=== PATIENT | female | born 1970 | race Caucasian/White ===

== ENCOUNTER 2020-04-05 00:15 | Emergency (ER) | payer OTHER, SELFPAY ==
[2020-04-05] VITALS (9 sets, daily range): BP systolic 95–190; BP diastolic 51–104; PULSE 60–114; RESP 12–22; TEMP 36.8; O2SAT 92–99; BMI 25.0
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
[2020-04-05] MEDS: Ibuprofen 600 MG Tablet PO (00:45)
[2020-04-05] MEDS: fentaNYL 100 MCG/2 ML Ampul 50 MCG IV (01:27)
[2020-04-05] MEDS: Propofol 200 MG/20 ML Vial IV BOLUS (01:27)
--- NOTE | 2020-04-05 01:53 | RAD_ITS ---
STUDY: X-RAY - RIGHT ANKLE REASON FOR EXAM: Female, 49 years old. POST REDUCTION TECHNIQUE: 2 view(s) of the ankle. COMPARISON: April 05, 2020 right ankle x-ray. FINDINGS: There is a fracture of the medial malleolus with lateral displacement of the distal fragment. There is a fracture of the distal fibula. There is a widened appearance of the tibiotalar joint. There is a fracture of the posterior malleolus. Normal visualized talus and calcaneus. The visualized subtalar, talonavicular, calcaneocuboid and tarsal articulations are normal. There is soft tissue edema. RAD/Ankle 2 Views IMPRESSION: Trimalleolar fracture now in a splint. Persistent widening of the tibiotalar joint. Electronically Signed: Kristen De León MD at 2:20 EDT Tel , Service support ,
== END 2020-04-05 02:26 | disposition home or self-care (01) ==
PROVIDERS: Emergency Provider Emergency Medicine; PCP Internal Medicine
DX: S82.851A Displaced trimalleolar fracture of right lower leg, initial encounter for closed fracture (principal); V86.69XA Passenger of other special all-terrain or other off-road motor vehicle injured in nontraffic accident, initial encounter; Y93.9 Activity, unspecified; Y92.9 Unspecified place or not applicable; Y99.9 Unspecified external cause status
CPT/HCPCS: 27818; 73600; 73610; 96361; 96374; 96375; 99285; J7030

== ENCOUNTER → 2020-04-07 09:49 | Outpatient (CLI) | payer OTHER, SELFPAY ==
[2020-04-05 00:16] VITALS: BMI 25.0
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
--- NOTE | 2020-04-07 10:02 | RAD_ITS ---
STUDY: X-RAY CHEST REASON FOR EXAM: Female, 49 years old. Pre op for ankle surgery -- no chest complaints TECHNIQUE: PA and lateral views of the chest. COMPARISON: None. FINDINGS: The lungs are clear and expanded. There is no demonstrated pleural abnormality. Normal size heart. Normal mediastinum and fiorella. Normal visualized pulmonary arteries. Normal visualized aortic arch and descending thoracic aorta. Normal visualized thoracic spine. Normal visualized ribs, clavicles, and shoulders. There is no demonstrated abnormality of the visualized soft tissue structures of the upper abdomen. RAD/Chest PA and Lateral IMPRESSION: Normal x-ray examination of the chest. Electronically Signed: Grge Bahena, at 15:29 EDT , Service support ,
== END ==
PROVIDERS: PCP Internal Medicine; Referring Provider Podiatrist Foot & Ankle Surgery; Visit Provider Podiatrist Foot & Ankle Surgery
DX: S82.851A Displaced trimalleolar fracture of right lower leg, initial encounter for closed fracture (principal); X58.XXXA Exposure to other specified factors, initial encounter; Y93.9 Activity, unspecified; Y92.9 Unspecified place or not applicable; Y99.9 Unspecified external cause status; Z01.818 Encounter for other preprocedural examination
CPT/HCPCS: 71046; 73700

== ENCOUNTER 2020-04-10 08:28 | Day surgery (SDC) | payer OTHER, SELFPAY ==
[2020-04-05 00:16] VITALS: BMI 25.0
--- NOTE | 2020-04-07 10:25 | EKG12_ITS ---
Test Reason : PRE-OP Blood Pressure : / mmHG Vent. Rate : 083 BPM Atrial Rate : 083 BPM P-R Int : 132 ms QRS Dur : 078 ms QT Int : 360 ms P-R-T Axes : 077 047 032 degrees QTc Int : 423 ms Normal sinus rhythm Normal ECG Confirmed by SHARLA RAYA, RUDDY ([id number]), copy editor MILES HERNANDEZ ([id number]) on 04/09/2020 10:20:55 AM Referred By: Lucas Hernandez Confirmed By:RUDDY MAGDALENO MD
[2020-04-07 10:28] LABS: Absolute Lymphocyte Count 2.26 X10^3/uL (0.83-4.51); Absolute Neutrophil Count 6.4 X10^3/uL (2.0-7.7); Basophil# 0.06 X10^3/uL; Basophil% 0.6 % (0-1); Eosinophil# 0.13 X10^3/uL; Eosinophils% 1.3 % (0-5); Hematocrit 36.5 % (37-47); Hemoglobin 12.3 g/dL (12.0-15.0); Lymphocyte # 2.26 X10^3/ul (4.0); Lymphocyte % 23.4 % (19-41); Mean Corp Hgb Conc 33.7 g/dL (32-36); Mean Corpuscular Hgb 32.2 pg (27.0-32.0); Mean Corpuscular Volume 95.5 fL (81-99); Mean Platelet Vol. 11.1 fl (6.2-12.0); Monocyte# 0.69 X10^3/uL; Monocyte% 7.1 % (0-10); NRBC Flagged by Analyzer 0 % (0-5); Neutrophil # 6.43 X10^3/uL (2.7-7.7); Neutrophil % 66.7 % (47-70); Platelet Count 175 K/mm3 (150-450); RBC Distribution Width CV 12.3 % (11.6-14.6); RBC Distribution Width SD 42.9 fl (35.1-43.9); Red Blood Count 3.82 M/mm3 (4.2-5.4); White Blood Count 9.7 K/mm3 (4.4-11.0)
[2020-04-07 10:40] LABS: International Normalized Ratio 0.8; Prothrombin Time (Protime)PT. 11.1 SECONDS (11.7-14.9)
[2020-04-07 10:41] LABS: Partial Thromboplast Time 29.9 Seconds (24.1-36.2)
[2020-04-07 10:57] LABS: Anion Gap 5 (5-15); BUN 13 mg/dL (7-18); BUN/Creat Ratio 18.5 RATIO (10-20); Calcium,Total 9.2 mg/dL (8.5-10.1); Chloride 105 mmol/L (98-107); EST Glomerular Filtration Rate 94 mL/min (>60); Est Glom Filt Rate - Afr Amer 113 mL/min (>60); Glucose 95 mg/dL (74-106); Sodium Level 139 mmol/L (136-145)
[2020-04-10] VITALS (8 sets, daily range): BP systolic 113–138; BP diastolic 71–78; PULSE 78–83; RESP 16–18; TEMP 36.2–36.4; O2SAT 92–97; BMI 24.7
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
[2020-04-10 08:51] LABS: Internal QC Validated? YES +Cl - CLEAR BKGD; Pregnancy, Urine Negative Negative
[2020-04-10] MEDS: Lactated Ringers 1,000 ML 100 ML IV (09:20)
[2020-04-10] MEDS: Cefazolin 2 GM in 0.9% Normal Saline 100 ML IV (12:40)
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
--- NOTE | 2020-04-10 16:51 | RAD_ITS ---
STUDY: X-RAY - RIGHT ANKLE REASON FOR EXAM: Female, 49 years old. Postop. TECHNIQUE: 3 view(s) of the ankle. COMPARISON: Intraoperative ankle, April 10, 2020. Right ankle, April 05, 2020. FINDINGS: There is a metallic plate and screws along the lateral aspect of the distal fibula. There are 2 transfixing screws through the medial malleolus as well as a sagittal screw repairing the posterior malleolar fracture. Normal medial and lateral malleoli. Normal tibiotalar articulation and ankle mortise. Normal visualized talus and calcaneus. The visualized subtalar, talonavicular, calcaneocuboid and tarsal articulations are normal. Soft tissues are partially obscured due to a semiradiopaque splint. RAD/Ankle min 3 Views IMPRESSION: Status post surgical fusion of a trimalleolar fracture. Electronically Signed: Tony Triplett DO at 17:16 EDT Tel [phone], Service support ,
== END 2020-04-10 18:36 | disposition home or self-care (01) ==
LOC: SDC 08:29 → AC 08:30
PROVIDERS: Anesthesiology; PCP Internal Medicine; Referring Provider Podiatrist Foot & Ankle Surgery; Visit Provider Podiatrist Foot & Ankle Surgery
DX: S82.851A Displaced trimalleolar fracture of right lower leg, initial encounter for closed fracture (principal); V86.69XA Passenger of other special all-terrain or other off-road motor vehicle injured in nontraffic accident, initial encounter; Y93.9 Activity, unspecified; Y92.9 Unspecified place or not applicable; Y99.9 Unspecified external cause status; F17.210 Nicotine dependence, cigarettes, uncomplicated; Z11.59 Encounter for screening for other viral diseases
CPT/HCPCS: 01480; 27822; 64447; 36415; 73600; 73610; 76000; 80048; 81025; 85025; 85610; 85730; 87635; 93005; C1713; G2023; J7120; J2405; U0002

== ENCOUNTER → 2023-09-01 | Outpatient (CLI) | payer OTHER, SELFPAY ==
[2023-09-01 15:04] LABS: Absolute Lymphocyte Count 2.53 X10^3/uL (0.83-4.51); Absolute Neutrophil Count 4.2 X10^3/uL (2.0-7.7); Basophil# 0.06 X10^3/uL; Basophil% 0.8 % (0-1); Eosinophil# 0.08 X10^3/uL; Eosinophils% 1.1 % (0-5); Hemoglobin 13.6 g/dL (12.0-15.0); Lymphocyte # 2.53 X10^3/ul (0.83-4.51); Lymphocyte % 34.3 % (19-41); Mean Corp Hgb Conc 33.2 g/dL (32-36); Mean Corpuscular Hgb 30.5 pg (27.0-32.0); Mean Corpuscular Volume 91.9 fL (81-99); Mean Platelet Vol. 11.5 fl (6.2-12.0); Monocyte# 0.48 X10^3/uL; Monocyte% 6.5 % (0-10); NRBC Flagged by Analyzer 0 % (0-5); Platelet Count 214 K/mm3 (150-450); RBC Distribution Width CV 11.9 % (11.6-14.6); RBC Distribution Width SD 39.7 fl (35.1-43.9); Red Blood Count 4.46 M/mm3 (4.2-5.4); White Blood Count 7.4 K/mm3 (4.4-11.0)
[2023-09-01 15:48] LABS: AST(SGOT) 20 U/L (15-37); Alanine Aminotransfer ALT/SGPT 21 U/L (13-56); Albumin, Serum 3.8 g/dL (3.2-5.0); Alkaline Phosphatase 79 U/L (45-117); Anion Gap 6 (5-15); BUN 12 mg/dL (7-18); BUN/Creat Ratio 16.6 RATIO (10-20); CPK Total, Creatine Kinase 71 U/L (26-192); Chloride 106 mmol/L (98-107); Cholesterol 231 mg/dL (200); Creatinine, Serum 0.72 mg/dL (0.55-1.02); EST Glomerular Filtration Rate 90 mL/min (>60); Est Glom Filt Rate - Afr Amer 109 mL/min (>60); Globulin 3.8 g/dL (2.2-4.2); Glucose 97 mg/dL (74-106); High Density Lipoprotein 58 mg/dL; Potassium 3.7 mmol/L (3.5-5.1); Protein, Total 7.6 g/dL (6.4-8.2); Sodium Level 139 mmol/L (136-145); Thyroid Stim Hormone (TSH) 0.86 uIU/mL (0.358-3.74); Triglycerides 363 mg/dL; Very Low Density Lipoprotein 73 mg/dL (5-40)
[2023-09-01 16:00] LABS: Hemoglobin A1c 5.2 % (3.8-5.6)
== END | disposition home or self-care (01) ==
PROVIDERS: PCP Family Medicine; Referring Provider Family Medicine; Visit Provider Family Medicine
DX: Z00.00 Encounter for general adult medical examination without abnormal findings (principal); R53.1 Weakness
CPT/HCPCS: 36415; 80053; 80061; 82550; 83036; 84443; 85025; 86140